=== PATIENT | male | born 2000 | race Hispanic/Latino ===

== ENCOUNTER 2019-01-17 13:27 | Emergency (ER) | payer OTHER ==
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
[2019-01-17 14:00] VITALS: BP 141/73
[2019-01-17] MEDS ORDERED: TORADOL IM ONE (15:02)
--- NOTE | 2019-01-17 15:13 | Cat Scan Report ---
CT FACIAL BONES WITHOUT CONTRAST: HISTORY: Right mandible pain. TECHNIQUE: Helical CT images with sagittal and coronal CT reformations. FINDINGS: All paranasal sinuses are clear. No sinus wall fracture, fluid level or opacification. The orbital cavities are symmetric and intact. The mandible is intact. The skull base and upper cervical spine demonstrate no evidence for acute injury. IMPRESSION: Unremarkable CT of the facial bones.
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
== END 2019-01-17 16:02 | disposition home or self-care (01) ==
LOC: ED 13:27
DX: R68.84 Jaw pain (principal); K08.89 Other specified disorders of teeth and supporting structures; F17.200 Nicotine dependence, unspecified, uncomplicated
CPT/HCPCS: 70486; 96372; 99283; J1885